=== PATIENT | male | born 1970 | race Caucasian/White ===

== ENCOUNTER 2016-09-03 06:01 | Inpatient (IN) | payer OTHER ==
[2016-09-03] MEDS ORDERED: Aspirin Low Dose CHEW TAB* 81 MG PO ONE (06:19)
--- NOTE | 2016-09-03 06:33 | ED ---
I, Oh,Rodrick, scribed for Abdoulaye Lovell MD on 09/03/16 at 0622 . HPI Chest Pain - HPI Summary HPI Summary: This 46 y/o male presents to ED for right sided CP since a week ago. CP is constant, waxing and waning. Pt initially dismissed it as muscle strain, but decided to visit ED today when pain started to radiate down RUE this morning. present at bedside reports that pt experienced similar episode of CP with HTN 2 years ago. PMHx includes DM, HTN, and diverticulitis. CP does not get worse with deep breath. Pt recently relocated to [place], [place] and has not yet established his primary care. - History of Current Complaint Chief Complaint: EDChestPainROMI Time Seen by Provider: 09/03/16 06:14 Hx Obtained From: Patient, Family/Insurance Sales Manager - present at bedside Timing: Constant, Lasting Weeks Pain Intensity: 5 Pain Scale Used: 0-10 Numeric Chest Pain Location: Right Lateral Chest Pain Radiates: Yes Chest Pain Radiates To:: Arm - RUE Character: Dull/Aching Aggravating Factor(s): Nothing Alleviating Factor(s): Nothing Associated Signs and Symptoms: Positive: Chest Pain. Negative: Shortness of Breath, Fever - Allergy/Home Medications Allergies/Adverse Reactions: Allergies Allergy/AdvReac Type Severity Reaction Status Date / Time No Known Drug Allergy Allergy See Comment Verified 09/03/16 08:38 pollen Allergy Eyes Uncoded 09/03/16 06:47 Itchy/Swollen/Red/Watery Home Medications: Home Medications Lisinopril TAB* [Prinivil TAB*] 10 mg PO DAILY 09/03/16 [History Confirmed 09/03] Metformin ER (NF) 500 mg PO DAILY 09/03/16 [History Confirmed 09/03/16] PMH/Surg Hx/FS Hx/Imm Hx Endocrine/Hematology History: Reports: Hx Diabetes Cardiovascular History: Reports: Hx Hypertension Infectious Disease History: No Infectious Disease History: Denies: Traveled Outside the [place] in Last 30 Days - Family History Known Family History: Positive: Hypertension - positive to father - Social History Lives: With Family Alcohol Use: None Hx Substance Use: No Substance Use Type: Reports: None Hx Tobacco Use: No Smoking Status (MU): Never Smoked Tobacco Review of Systems Negative: Fever Positive: Chest Pain Negative: Shortness Of Breath Negative: Anxious, Depressed All Other Systems Reviewed And Are Negative: Yes Physical Exam Triage Information Reviewed: Yes Vital Signs On Initial Exam: Initial Vitals Temp Pulse Resp BP Pulse Ox 98 F 76 18 152/88 96 09/03/16 06:08 09/03/16 06:08 09/03/16 06:08 09/03/16 06:08 09/03/16 06:08 Vital Signs Reviewed: Yes Appearance: Positive: No Pain Distress, Obese Skin: Positive: Warm Head/Face: Positive: Normal Head/Face Inspection Eyes: Positive: LORENZA ENT: Positive: Hearing grossly normal Neck: Positive: Supple Respiratory/Lung Sounds: Positive: Clear to Auscultation, Breath Sounds Present Cardiovascular: Positive: RRR Abdomen Description: Positive: Nontender, Soft Bowel Sounds: Positive: Present Musculoskeletal: Positive: Strength/ROM Intact Neurological: Positive: Sensory/Motor Intact, Alert, Oriented to Person Place, Time Psychiatric: Positive: Affect/Mood Appropriate Diagnostics - Vital Signs Vital Signs Temp Pulse Resp BP Pulse Ox 09/03/16 06:08 98 F 76 18 152/88 96 - Laboratory Result Diagrams: 09/03/16 06:30 09/03/16 06:30 Lab Statement: Any lab studies that have been ordered have been reviewed, and results considered in the medical decision making process. - Radiology CXR Radiology Interpretation Completed By: ED Physician - See EMR for official reading - EKG 0609 Cardiac Rate: NL - 79 bpm EKG Rhythm: Sinus Rhythm Chest Pain Course/Dx - Diagnoses Provider Diagnoses: Chest pain, unspecified Discharge - Discharge Plan Condition: Stable Disposition: ADMITTED TO [facility] documentation as recorded by the Santi sinha Soohyun accurately reflects the service I personally performed and the decisions made by Liliya duke David, MD.
[2016-09-03 06:51] LABS: Hematocrit 43 % (42-52); Hemoglobin 14.7 g/dl (14.0-18.0); Mean Corpuscular HGB Conc 34 g/dl (31-36); Mean Corpuscular Hemoglobin 31 pg (27-31); Mean Corpuscular Volume 92 fL (80-94); Mean Platelet Volume 8 um3 (7.4-10.4); Red Blood Count 4.67 10^6/ul (4.0-5.4); Red Cell Distribution Width 13 % (10.5-15); White Blood Count 4.8 10^3/ul (3.5-10.8)
[2016-09-03 07:03] LABS: Albumin 3.8 g/dL (3.2-5.2); BUN/Creatinine Ratio 14.6 (8-20); Calcium 9.5 mg/dL (8.6-10.3); EGFR African American 117.3 (>60); EGFR Non-African American 91.2 (>60); Globulin 3.1 g/dL (2-4); Magnesium 1.9 mg/dL (1.9-2.7); Potassium 4.1 mmol/L (3.5-5.0); Total Bilirubin 0.4 mg/dL (0.2-1.0); Total Protein 6.9 g/dL (6.4-8.9)
--- NOTE | 2016-09-03 07:59 | RAD ---
INDICATION: RIGHT-sided chest pain for one week. History of hypertension and diabetes. COMPARISON: None. TECHNIQUE: Dual energy PA and routine lateral views of the chest were obtained. REPORT: Large body habitus limits image quality. No pulmonary infiltrate, focal pulmonary lesion, pleural effusion, pneumothorax. The heart, pulmonary vasculature, and mediastinal contours are unremarkable. No fracture or focal osseous lesion evident. IMPRESSION: No evidence for acute intrathoracic disease.
[2016-09-03] MEDS ORDERED: Acetaminophen TAB* 325 MG PO PRN (08:11)
[2016-09-03] MEDS: Heparin VIAL(*) 5000 UNITS/ML VIAL (FIVE THOUSAND) SUBCUT SCH ×2 (10:49→21:01)
[2016-09-03] MEDS: Lisinopril TAB* 10 MG PO SCH (10:51)
[2016-09-04] MEDS: Heparin VIAL(*) 5000 UNITS/ML VIAL (FIVE THOUSAND) SUBCUT SCH ×2 (08:15→21:06)
--- NOTE | 2016-09-04 13:34 | RAD ---
Edited for charges. INDICATION: Chest pain. COMPARISON: No relevant prior exams available on the [facility] PACS. TECHNIQUE: On September 03, 2016, 25.050 mCi of Tc-99m Myoview were administered IV. SPECT images of the heart were obtained. On September 04, 2016, under the direction of Dr. Merino, the patient was given an IV injection of a pharmacologic stress agent. Subsequently, the patient was given an IV injection of 25.130 mCi Tc-99m Myoview. SPECT images of the heart were obtained and a gated wall motion study was performed. No CT for attenuation could be performed due to body habitus and limited range of motion of the arms. FINDINGS: Gated wall motion images were obtained at stress and demonstrate wall motion to be within normal limits. Calculated left ventricular ejection fraction is 63 % at stress and 66 % at rest. Estimated LEFT ventricular end diastolic volume is 118 mL at stress and 129 mL at rest. TID 0.97. Obesity and lack of CT for attenuation correction limits assessment. There is a small region of decreased perfusion at the mid to basilar anterior wall and a moderate region of decreased perfusion at the mid to basilar inferior wall at stress with reversal at rest concerning for foci of ischemia. No fixed myocardial perfusion defects evident. IMPRESSION: 1. While assessment is limited due to obese body habitus and absence of CT for attenuation correction there is suggestion of multiple foci of ischemia including at the mid to basilar anterior and mid to basilar posterior king. 2. Borderline dilated LEFT ventricle. Normal range estimated LEFT ventricular ejection fraction. ASSESSMENT: Intermediate risk. Based on imaging criteria from ACC/AHA 2002 Guideline Update for the Management of Patients With Chronic Stable Angina Table 23. Noninvasive Risk Stratification. MTDD
--- NOTE | 2016-09-04 13:39 | PN ---
Subjective Date of Service: 09/04/16 Interval History: Pt is feeling well. No further chest discomfort. No SOB. He is anxious to go home. Objective Active Medications: Acetaminophen (Tylenol Tab*) 650 mg PO Q4H PRN PRN Reason: PAIN Heparin Sodium (Porcine) (Heparin Vial(*)) 5,000 units SUBCUT Q12HR [facility] Last Admin: 09/04/16 08:15 Dose: 5,000 units Lisinopril (Prinivil Tab*) 10 mg PO DAILY [facility] Last Admin: 09/03/16 10:51 Dose: Not Given Vital Signs 09/03/16 09/03/16 09/04/16 15:40 20:42 00:34 Temperature 97.5 F 98.0 F 97.9 F Pulse Rate 73 79 88 Respiratory 14 18 16 Rate Blood Pressure 148/82 143/78 136/66 (mmHg) O2 Sat by Pulse 97 94 94 Oximetry 09/04/16 09/04/16 04:07 07:25 Temperature 97.4 F 98.2 F Pulse Rate 89 78 Respiratory 16 16 Rate Blood Pressure 156/71 134/79 (mmHg) O2 Sat by Pulse 93 96 Oximetry Oxygen Devices in Use Now: None Appearance: Middle aged obese male sitting on the edge of the bed, NAD Eyes: No Scleral Icterus Ears/Nose/Mouth/Throat: Mucous Membranes Moist Respiratory: Symmetrical Chest Expansion and Respiratory Effort, Clear to Auscultation Cardiovascular: NL Sounds; No Murmurs; No JVD, RRR, No Edema Abdominal: NL Sounds; No Tenderness; No Distention Extremities: No Clubbing, Cyanosis Skin: No Rash or Ulcers, No Nodules or Sclerosis Neurological: Alert and Oriented x 3 Result Diagrams: 09/03/16 06:30 09/03/16 06:30 Assess/Plan/Problems-Billing Mr Hernandez is a 46 yo M with a h/o HTN and type II DM who presented to the ER with c/o chest pain. - Patient Problems (1) Chest pain Current Visit: Yes Status: Acute Code(s): R07.9 - CHEST PAIN, UNSPECIFIED SNOMED Code(s): 74314860 Comment: The patient was ruled out for OH. The nuclear imaging report is pending from his stress test. If the stress test is negative for ischemia will discharge the patient home. If positive will ask for cardiology evaluation. (2) HTN (hypertension) Current Visit: Yes Status: Acute Code(s): I10 - ESSENTIAL (PRIMARY) HYPERTENSION SNOMED Code(s): 03872798 Comment: BP is under fair control. He will continue on his usual dose of lisinopril but will need to follow up with his PCP for further adjustments. (3) Type II diabetes mellitus Current Visit: Yes Status: Acute Comment: A1c is good at 6.5%. Continue current dose of metformin ER. (4) DVT prophylaxis Current Visit: Yes Status: Acute Code(s): QBH5195 - SNOMED Code(s): 110160502 Comment: SQ heparin (5) Full code status Current Visit: Yes Status: Acute Code(s): Z78.9 - OTHER SPECIFIED HEALTH STATUS SNOMED Code(s): 749720309 Status and Disposition: d/c home if stress test negative
[2016-09-04] MEDS: Lisinopril TAB* 10 MG PO SCH (13:55)
--- NOTE | 2016-09-04 14:01 | PN ---
Progress Note - Progress Note Note: Pt's nuclear imaging was concerning for multiple foci of ischemia and possibly a dilated LV. Will get echo now to eval LVEF and plan on exercise stress echo tomorrow.
[2016-09-04] MEDS ORDERED: Regadenoson* 0.4 MG/5 ML SYRINGE ONE (16:41)
--- NOTE | 2016-09-05 00:46 | HP ---
HISTORY AND PHYSICAL: DATE OF ADMISSION: 09/03/16 PRIMARY CARE PROVIDER: Dr. Sterling. CHIEF COMPLAINT: Chest pain. HISTORY OF PRESENT ILLNESS: Mr. Hernandez is a 46-year-old male with a history of morbid obesity, type 2 diabetes, and hypertension who presents to the emergency room with complaints of chest pain. The patient states that over the last 1 week, he has had off and on right-sided chest pain that radiates down his right arm. The patient ultimately became concerned due to the radiation down the right arm on the day of presentation. Of note, the patient had walked 2 miles with his just a couple days prior to this presentation and had lifted up the front end of a car recently. PAST MEDICAL HISTORY: 1. Hypertension. 2. Type 2 diabetes. 3. Morbid obesity. MEDICATIONS: 1. Metformin ER 500 mg p.o. daily. 2. Lisinopril 10 mg p.o. daily. ALLERGIES: No known drug allergies. FAMILY HISTORY: Noncontributory. Both parents are living without any significant past medical history. SOCIAL HISTORY: The patient is a nonsmoker. He does not drink alcohol routinely. 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 He has a girlfriend. REVIEW OF SYSTEMS: A complete 11-system review of systems was obtained. Pertinent positives and negatives are as per HPI and otherwise negative. PHYSICAL EXAMINATION GENERAL: The patient is a well-developed, morbidly obese, middle-aged male, sitting in the stretcher, in no acute distress. VITAL SIGNS: Blood pressure 146/83, pulse 73, respirations 19, temperature 97.6 , O2 sat 95% on room air. HEENT: Pupils are equal. They are round. They react to light. Extraocular muscles are intact. Oropharynx is clear. Oral mucosa is moist. There is no submandibular, cervical, or supraclavicular adenopathy. NECK: Thyroid is not enlarged. No thyroid nodules are noted. PULMONARY: Lungs are clear to auscultation bilaterally. CARDIAC: Normal S1, S2. Regular rate and rhythm. I did not appreciate any murmurs. There is no lower extremity edema. ABDOMEN: Bowel sounds present. Abdomen is soft, nontender, nondistended. MUSCULOSKELETAL: There is no cyanosis or clubbing of the digits. There is full active range of motion of all 4 extremities. SKIN: Warm and dry. There are no rashes. NEUROLOGIC: Cranial nerves II through XII are grossly intact. Sensation is intact to light touch throughout. Strength is 5/5 and symmetric in both upper and lower extremities bilaterally. PSYCH: The patient is alert. He is oriented x3. Affect appears appropriate. LABORATORY DATA AND DIAGNOSTIC STUDIES: WBC 4.8, hemoglobin 14.7, hematocrit 43, platelets 159. D-dimer less than 200. Sodium 136, potassium 4.1, chloride 103, CO2 28, BUN 13, creatinine 0.89, glucose 121, lactic acid 1.0, calcium 9.5 , magnesium 1.9, bilirubin 0.4, AST 16, ALT 24, alk phos 64, troponin 0. Albumin 3.8. Triglycerides 130, cholesterol 160, LDL 93, HDL 41. EKG reveals normal sinus rhythm without any acute ST-T wave abnormalities. Chest x-ray: No evidence for acute intrathoracic disease. ASSESSMENT AND PLAN: Mr. Hernandez is a 46-year-old male with a history of morbid obesity, hypertension, and type 2 diabetes who presents to the emergency room with complaints of right-sided chest pain off and on for the last 1 week with radiation down the right arm. 1. Chest pain: The patient's story is very atypical; however, given his morbid obesity, hypertension, and type 2 diabetes, I am concerned due to the risk factors. The patient will be admitted and ruled out for an acute coronary syndrome with serial troponins and EKGs. He will undergo a chemical nuclear stress test later today. I suspect this will need to be a 2-day stress test given his morbid obesity. 2. Hypertension: The patient's blood pressure is under good control. He will be maintained on his usual dose of lisinopril. 3. Type 2 diabetes: The patient's metformin will be held. His hemoglobin A1c will be obtained. 4. DVT prophylaxis: According to the Adult Thrombosis Prophylaxis Risk Factor Assessment Guide, the patient has a total risk factor score of 2 making him moderate risk. He will be placed on heparin 5000 units subcutaneous q.12 hours. 5. Code status is full. TIME SPENT: 55 minutes were spent admitting this patient. CC: Dr. Sterling * [id number]/[facility] #: [id number] [facility] HOSPITALDoretha
[2016-09-05 07:42] VITALS: BP 135/81
[2016-09-05] MEDS: Lisinopril TAB* 10 MG PO SCH (08:56)
[2016-09-05] MEDS: Heparin VIAL(*) 5000 UNITS/ML VIAL (FIVE THOUSAND) SUBCUT SCH (08:56)
[2016-09-05] MEDS ORDERED: Perflutren Lipid Microsphere* 1.1 MG/ML VIAL IV ONE (11:00)
--- NOTE | 2016-09-05 13:34 | DCNOTE ---
Patient seen early PM after stress echo. Patient has no complaints. No recurrence of chest pain. On exam, RRR, s1 and s2 present, no m/g/r, lungs CTA B/L, no w/r/r, obese, soft , NTND, BS+ Spoke with Dr. Merino, no symptoms during stress test, normal EKG, echo images not optimal but no concerning changes. Will discharge home with ASA 81 mg daily in additional to Lisinopril. Weight loss encouraged. F/U with Dr. Sterling made.
--- NOTE | 2016-09-05 15:49 | ECHO ---
Patient: SHEREE DON [facility] Rec#: [id number] : 1970 Date: 09/05/2016 Age: 46y Height: 180.34 cm / 71.0 in Weight: 157.85 kg / 347.9 lbs Sex: M BSA: 2.67 Room#: [facility] Admit Date#: 09/04/2016 Type: Inpatient Referring: Candace Kaplan DO Reading: Lg Merino MD Sql Developer: Xiomy Alvarado MELISSA CC: Roberto Carlos Sterling MD Transthoracic Echocardiogram Indication: CP BP: 128/73 HR: 77 Rhythm: NSR Findings History: DM,HTN,diverticulosis,obesity. Technical Comments: The study is technically limited due to patient body habitus. Completed at 0920. Left Ventricle: The left ventricular chamber size is normal. Mild to moderate concentric left ventricular hypertrophy is observed. There is normal left ventricular systolic function. The estimated ejection fraction is 55-60%. Abnormal left ventricular diastolic function is observed. Left Atrium: The left atrial chamber size is normal. Right Ventricle: The right ventricle is not well visualized. The right ventricle wall thickness is mildly increased.RV free wall 7 mm in the KYLAH The right ventricular global systolic function is mildly reduced. Right Atrium: The right atrium is not well visualized. Aortic Valve: The aortic valve is trileaflet. There is no evidence of aortic regurgitation. There is no evidence of aortic stenosis. Mitral Valve: The mitral valve leaflets are mildly thickened. There is no evidence of mitral regurgitation. There is no evidence of mitral stenosis. Tricuspid Valve: The tricuspid valve structure is not well visualized. Pericardium: No pericardial fat pad is visualized. Aorta: There is no dilatation of the ascending aorta. There is no dilatation of the aortic arch. There is no dilation of the aortic root. Pulmonary Artery: The main pulmonary artery appears normal. Venous: The venous system is not well visualized. Summary: There was not any prior study for comparison. Conclusions The study is technically limited due to patient body habitus. Mild to moderate concentric left ventricular hypertrophy is observed. The estimated ejection fraction is 55-60%. Abnormal left ventricular diastolic function is observed. The right ventricle wall thickness is mildly increased. The right ventricular global systolic function is mildly reduced. Measurements Name Value Normal Range RVIDd (AP) 2D 3.3 cm (0.9 - 2.6) RAd ISD 4CH 3.8 cm (3.4 - 4.9) RA (A4C)W 3.2 cm (2.9 - 4.6) IVSd (2D) 1.2 cm (0.6 - 1) LVPWd (2D) 1.4 cm (0.6 - 1) LVIDd (2D) 4.5 cm (3.6 - 5.4) LVIDs (2D) 3 cm - LV FS (2D) 33 % (25 - 45) EF Teichholz (2D) 61.39 % - Aortic Annulus 1.8 cm (1.4 - 2.6) Ao root diameter (2D) 3.3 cm (2.1 - 3.5) Ascending Ao 3.2 cm (2.1 - 3.4) Aortic arch 2.5 cm (1.8 - 3.4) Descending Ao 0.6 cm - LAd ISD 4CH 4.9 cm (2.9 - 5.3) LA ISD 4CH W 3.1 cm (2.5 - 4.5) Name Value Normal Range LA ESV SP 4CH (A/L) 21 ml - LA ESV SP 2CH (A/L) 33 ml - LA ESV BP (A/L) 28 ml - LA ESV BP (A/L) index 10.35 ml/m2 - LA ESV SP 4CH (MOD) 20 ml - LA ESV SP 2CH (MOD) 31 ml - Name Value Normal Range MV E-wave Vmax 0.7 m/sec - MV deceleration time 219 msec - MV A-wave Vmax 0.9 m/sec - MV E:A ratio 0.8 ratio - LV septal e' Vmax 0.09 m/sec - LV lateral e' Vmax 0.1 m/sec - LV E:e' septal ratio 7.78 ratio - LV E:e' lateral ratio 7 ratio - Name Value Normal Range AV Vmax 1.3 m/sec - AV VTI 29 cm - AV peak gradient 6.48 mmHg - AV mean gradient 3.65 mmHg - LVOT Vmax 1 m/sec - LVOT VTI 23.2 cm - LVOT peak gradient 3.97 mmHg - LVOT mean gradient 1.87 mmHg - Name Value Normal Range PV Vmax 0.8 m/sec - PV peak gradient 2.39 mmHg -
--- NOTE | 2016-09-05 16:29 | CONS ---
CC: Lg Merino MD CARDIOLOGY CONSULTATION: DATE OF CONSULTATION: 09/05/16 CONSULTING PHYSICIAN: Candace Kaplan DO. REASON FOR EVALUATION: Abnormal stress test, chest pain. HISTORY OF PRESENT ILLNESS: This is a very pleasant 46-year-old gentleman with morbid obesity, hype rtension and diabetes who presented with chest pain. He reports that he had had shoulder discomfort and chest pain on and off over several days. He said that he decided to get in better shape and we nt for a 45-minute walk with his and after that noticed that the pain was worse with shoulder b lade pain and left chest, the symptoms were worse lying on his right side and better standing up. B ecause of the symptoms, he came to the emergency room. He was admitted for rule out RI. Of note, h is troponins was 0 on the , 0.1 later on the and 0 in the afternoon of the . His EKG s howed sinus rhythm with no acute changes, poor R-wave progression. He was observed overnight and un derwent evaluation with a pharmacologic stress test on 09/04/16. At that time, he did not have his shoes and had a pharmacologic stress test. Because of his marked obesity, he was unable to undergo attenuation correction of a CT imaging. It was felt that the assessment was limited due to obese alvarez dy habitus and absence of CT attenuation correction. There was suggestion of multiple foci of ische brandon including the mid-to- basilar anterior and eql-tq-fhyekev posterior king, borderline dilated le ft ventricle, normal range, estimated AF and was felt to be intermediate risk. Dr. Kaplan called me because of those findings. I discussed the case with Dr. Christian and Dr. Kaplan, and because of th e atypical nature of the chest pain, it was felt that his chest pain may not be ischemic but he did have risk factors for coronary disease and it was unclear whether the nuclear findings were artifact ual or not. The patient denies orthopnea. He denies any chest pain. Today, he has had no syncope o r near syncope, no palpitations. PAST MEDICAL HISTORY: Includes: 1. Diabetes. 2. Hypertension. 3. Morbid obesity, he has lost 30 pounds over the last year or so. He denies hyperlipidemia or tobacco use. MEDICATIONS: Include: 1. Metformin ER 500 mg a day. 2. Lisinopril 10 mg a day. ALLERGIES: He has no known drug allergies. FAMILY HISTORY: His father has hypertension and mother who had a valve surgery and a brother who di ed in a motor vehicle accident. SOCIAL HISTORY: He works in quality assurance supervisor in [employer], but he also has a hobby of working on race cars and often lifts heavy things in his garage. He states last week he actually pi cked up the front of a race car and moved it around the garage. He denies alcohol use. He drinks h cristina gallon of ice tea a day. He is , but lives with his girlfriend and the son. REVIEW OF SYSTEMS: Review of systems x10 was negative except as above. He said that he does not ex ercise regularly and only went for the walk with his last week at her insistence, does not regu larly exercise. PHYSICAL EXAM: General: He is a morbidly obese gentleman, 348 pounds. Vital Signs: Blood pressur e 135/81, pulse is 86. No significant JVD. Carotids are 2+. Extraocular muscles intact. Sclerae a nicteric. Atraumatic, normocephalic. Cardiac exam: S1 and S2 somewhat distant, no murmurs, gallops or rubs. Chest was clear. No CVAT. Abdominal exam: Morbidly obese. Exam limited due to obesity . Femoral pulses intact without bruits. Distal pulses are intact with trace edema of the ankles and lower extremities. Motor strength 5/5 bilaterally. Deep tendon reflexes are 2/4. Alert and orien zee x3. DIAGNOSTIC STUDIES/LAB DATA: EKG with normal sinus rhythm with poor R-wave progression. Today cecil use of his equivocal nuclear test, atypical chest pain and risk factors, it was felt that the exam w as inconclusive. In light of the fact he had pharmacologic stressors, there was no evaluation of hi s exercise capacity. Therefore, after discussion with Dr. Kaplan, I recommended evaluation with an e xercise stress echo with Definity contrast. The patient today was able to complete 8 minutes and 31 seconds to 8.5 METS. He had no chest pain. He had no EKG changes. No arrhythmias. He demonstrat ed fair exercise capacity. He had no evidence of ischemia by echo or EKG on this test, although lefty e of the images may have been suboptimal due to his habitus. IMPRESSION: My impression is that Mr. Hernandez had episodes of chest pain with no evidence of infarct or ischemia based on EKG's, enzymes or stress echo. He did have an abnormal nuclear which may have been artifactual due to his obesity and difficult body habitus. Therefore, I did explain to the pat ient that negative stress test did not exclude coronary disease, and given his risk factors, he may have the beginning of some plaque. I strongly recommended risk factor modification and better lifes tyle. I recommended he add aspirin 81 mg a day to his regimen. I suggested he try to reduce his weight. We talked at length about regular moderate exercise and safe ways to do that. I had asked him to avoid heavy isometric exercises, especially lifting heavy things in his garage li ke the car. I strongly recommended weight reduction. He understands the need to report any unexplained decrease in exercise tolerance or recurrence of un explained pain. Discussed with Dr. Stu Fontaine who is covering for Dr. Kaplan today. [id number]/[facility] #: [id number]
--- NOTE | 2016-09-06 03:20 | DS ---
DISCHARGE SUMMARY: DATE OF ADMISSION: 09/03/16 DATE OF DISCHARGE: 09/05/16 PRIMARY CARE PHYSICIAN: Dr. Sterling. PRINCIPAL DISCHARGE DIAGNOSIS: Noncardiac chest pain. SECONDARY DIAGNOSES: 1. Hypertension. 2. Type 2 diabetes. 3. Morbid obesity. CONSULTANTS DURING HOSPITALIZATION: Dr. Lg Merino. STUDIES DONE DURING HOSPITALIZATION: Nuclear cardiac stress test, impression: While assessment is limited due to obese body habitus and absence of CT for attenuation correction, there is suggestion of multiple foci of ischemia including at the mid to basilar anterior and mid to basilar posterior king, borderline dilated left ventricle of normal range. Estimated left ventricular ejection fraction intermediate risk. Chest x-ray, impression: No evidence for acute intrathoracic disease. Transthoracic echocardiogram. Studies technically limited due to body habitus. [id number] concentric LVH is observed. Estimated ejection fraction of 55 % to 60%. Abnormal left ventricular diastolic function is observed. The right ventricular wall thickness is mildly increased. The right ventricular global systolic function is mildly reduced. DISCHARGE MEDICATION REGIMEN: 1. Metformin 500 mg by mouth daily. 2. Lisinopril 10 mg by mouth daily. 3. Aspirin 81 mg by mouth daily. HISTORY OF PRESENT ILLNESS AND HOSPITAL SUMMARY: Please see the full history and physical by Dr. Candace Kaplan for full details. Briefly, Mr. Hernandez is a 46 -year- old male with past medical history as above, who presented to the hospital with atypical chest pain. It was felt that this was unlikely due to a cardiac source; however, due to the patient's risks factors, he underwent a nuclear cardiac stress test. However, the patient had a difficult time fitting in the machine due to his body habitus, so the study was not accurate and there were some questionable areas; this prompted a stress echo. I spoke with Dr. Merino, who performed the examination as stated. The patient had no EKG changes during the stress test and echocardiogram, although the windows were not perfect, did not notice any significant abnormalities. The patient had no chest pain on day of discharge. This was felt to possibly be due to musculoskeletal cause. Given the patient's risk factors, it was felt that he would benefit from a baby aspirin in addition to his home lisinopril and will follow up with a PCP as an outpatient. TIME SPENT: Total time spent on this discharge 40 minutes. This is the summary of the hospitalization. Please the full medical record for further details. CC: Dr. Sterling* [id number]/CPS #: [id number]
--- NOTE | 2016-09-07 14:58 | ED ---
Bonita Patel Matthew, scribed for Kody Franco MD on 09/03/16 at 0813 . Progress - Progress Note Progress Note: The patient is a sign out from Dr. Lovell. Upon re-evaluation of the patient, he was chest pain free. I discussed the case with Dr. Kaplan at 08:00 for admission into her services for stress test and observation. She accepted the patient and agrees with management of the patient. The patient is in stable condition. Course/Dx - Diagnoses Provider Diagnoses: Chest pain, unspecified The documentation as recorded by the Bonita sinha Matthew accurately reflects the service I personally performed and the decisions made by , Kody Franco MD.
== END 2016-09-05 13:52 | disposition home or self-care (01) | DRG 313 ==
LOC: ED 06:01 → MEDTELE 08:05 → OBSVTOIN 09-04 13:57
PROVIDERS: ADMIT Hospitalist; ATTEND Hospitalist
DX: R07.89 Other chest pain (principal); Z68.42 Body mass index [BMI] 45.0-49.9, adult; I10 Essential (primary) hypertension; E11.9 Type 2 diabetes mellitus without complications; E66.01 Morbid (severe) obesity due to excess calories; Z79.82 Long term (current) use of aspirin; Z91.048 Other nonmedicinal substance allergy status; Z82.49 Family history of ischemic heart disease and other diseases of the circulatory system; Z79.84 Long term (current) use of oral hypoglycemic drugs
CPT/HCPCS: 36415; 71020; 78452; 80053; 80061; 83036; 83605; 83735; 84484; 85025; 85379; 93005; 93017; 93306; 93350; A9270-GY; A9502; G0378; J1644; J2785